=== PATIENT | female | born 1980 | race Caucasian/White ===

== ENCOUNTER 2021-08-21 09:21 | Outpatient (CLI) | payer OTHER, SELFPAY ==
[2021-08-21 18:49] LABS: Hematocrit 41.9 % (37.0-47.0); Hemoglobin 13.4 g/dL (12.0-15.0); Mean Corpuscular Volume 93.9 fl (80-100); Mean Platelet Volume 9.9 fl (7.4-10.4); Platelet Count Result 337 k/mm3 (150-375); Red Blood Count 4.46 M/mm3 (4.2-5.4); Red Cell Distribution Width 13.7 % (11.5-14.5); White Blood Count 2.9 K/mm3 (4.5-10.0)
[2021-08-21 18:58] LABS: Alanine Aminotransferase 18 U/L (4-35); Albumin Level 3.9 g/dL (3.5-5.1); Alkaline Phosphatase 62 U/L (38-126); Anion Gap 5 mmol/L (8-16); Aspartate Amino Transferase 25 U/L (14-36); Bilirubin,Total 0.3 mg/dL (0.2-1.3); Blood Urea Nitrogen 13 mg/dL (7-17); Calcium 9.4 mg/dL (8.4-10.2); Carbon Dioxide 29 mmol/L (22-30); Chloride 104 mmol/L (98-107); Cholesterol 166 mg/dL (0-200); Estimated Glomerular Filt Rate > 60; Glucose 97 mg/dL (65-110); HDL Direct 60 mg/dL; Potassium 4.1 mmol/L (3.4-5.0); Sodium 138 mmol/L (137-145); Triglycerides 59 mg/dL (<150)
[2021-08-21 19:09] LABS: LDL Cholesterol Direct 94 mg/dL
[2021-08-21 19:23] LABS: Total Cells Counted 100
[2021-08-21 19:28] LABS: Lymphocytes Absolute Manual 1.53 K/mm3 (1.1-4.5); Lymphocytes Percent Manual 53 % (18-44); Monocytes Absolute Manual 0.11 K/mm3 (0.1-0.90); Monocytes Percent Manual 4 % (3-9); Neutrophils Percent Manual 43 % (46-73)
[2021-08-21 19:31] LABS: Platelet Estimate Adequate (Adequate)
[2021-08-22 13:22] LABS: Hemoglobin A1C 5.2 % (<5.7)
[2021-08-25 05:49] LABS: Thyroid Peroxidase Antibodies 11 IU/mL (<9)
== END 2021-08-21 09:22 | disposition home or self-care (01) ==
PROVIDERS: PCP Family Medicine; Visit Provider Family Medicine
DX: Z00.00 Encounter for general adult medical examination without abnormal findings (principal); F41.9 Anxiety disorder, unspecified; R79.89 Other specified abnormal findings of blood chemistry
CPT/HCPCS: 36415; 80053; 80061; 83036; 84443; 85025; 86376

== ENCOUNTER 2022-05-17 15:04 | Outpatient (CLI) | payer OTHER, SELFPAY ==
[2022-05-17 19:14] LABS: Basophils Absolute Auto 0.1 K/mm3 (0.0-0.1); Eosinophils Absolute Auto 0.1 K/mm3 (0-0.3); Eosinophils Percent Auto 1.3 % (0-4.4); Hematocrit 41.2 % (37.0-47.0); Hemoglobin 13.2 g/dL (12.0-15.0); Lymphocytes Absolute Auto 2.19 K/mm3 (0.9-3.2); Lymphocytes Percent Auto 45.7 % (18.3-44.2); Mean Corpuscular Hemoglobin 29.4 pg (26-34); Mean Corpuscular Volume 91.8 fl (80-100); Mean Platelet Volume 10.1 fl (7.4-10.4); Monocytes Absolute Auto 0.7 K/mm3 (0.1-0.6); Neutrophils Absolute Auto 1.8 K/mm3 (1.3-6.7); Platelet Count Result 305 k/mm3 (150-375); Red Blood Count 4.49 M/mm3 (4.2-5.4); Red Cell Distribution Width 14.4 % (11.5-14.5); White Blood Count 4.8 K/mm3 (4.5-10.0)
== END 2022-05-17 15:05 | disposition home or self-care (01) ==
PROVIDERS: PCP Family Medicine; Visit Provider Family Medicine
DX: R79.89 Other specified abnormal findings of blood chemistry (principal); D72.819 Decreased white blood cell count, unspecified
CPT/HCPCS: 36415; 84443; 85025

== ENCOUNTER 2022-08-31 17:08 | Emergency (ER) | payer OTHER, SELFPAY ==
[2022-08-31 17:13] VITALS: BP 134/94; PULSE 76; RESP 16; TEMP 36.5; O2SAT 100
--- NOTE | 2022-08-31 17:35 | ED.EAR ---
HPI - Ear Problem General Chief complaint: Upper Respiratory Infection Stated complaint: sinus infection and ear clogged Time Seen by Provider: 08/31/22 17:26 Source: patient Mode of arrival: ambulatory Limitations: no limitations History of Present Illness HPI Narrative: Patient presents today complaining of 5 day history of left ear clogging, nasal congestion, cough. Cough is worse at night. Denies fever or shortness of breath. She has been taking Mucinex and an antihistamine with mild relief. Related Data Allergies Allergy/AdvReac Type Severity Reaction Status Date / Time Influenza Virus Vaccines Allergy Unknown Unknown Verified 08/31/22 17:26 No Known Allergies Allergy Verified 08/31/22 17:26 Review of Systems Review of Systems: CONSTITUTIONAL: Denies body aches, fever, chills, or sweats. EYES: Denies visual changes, redness, or discharge. ENT: Denies rhinorrhea, sore throat, or otalgia.+ nasal congestion, postnasal drip, left ear clogging CARDIOVASCULAR: Denies chest pain, palpitations, or edema. RESPIRATORY: Denies dyspnea.+ cough GASTROINTESTINAL: Denies abdominal pain, nausea, vomiting, or diarrhea. GENITOURINARY: Denies dysuria or hematuria. SKIN: Denies rash, itching, or wounds. MUSCULOSKELETAL: Denies back pain, joint pain, or myalgia. NEUROLOGIC: Denies headache, numbness, tingling, or weakness. PSYCH: Denies depression or anxiety. PMFSH Past Medical History Medical History Allergies Anxiety Family History Family History Mother Family history of diabetes mellitus in first degree relative Thyroid disorder Other Diabetes mellitus Social History Social History Smoking status: Never smoker Second hand tobacco smoke exposure: No Alcohol intake: current Substance use: never Comments At time of signature, I have reviewed and agree with nursing past medical, surgical, social and family history unless otherwise noted. Please see nursing chart for further information. There is no relevant family history pertinent to the presenting complaint Exam Narrative: GENERAL: Well-appearing, well-nourished, and in no acute distress. HEAD: Normocephalic, atraumatic. EYES: EOMI. No redness or drainage. Conjunctivae normal. ENT: Mucous membranes pink and moist. Nares congested. No rhinorrhea. Right TM normal. Left TM erythematous and bulging. Throat normal. Uvula midline. NECK: Normal AROM. Supple. No lymphadenopathy. CHEST: No respiratory distress. Clear to auscultation. Harsh cough noted. HEART: Regular rate and rhythm. No murmur appreciated. Normal peripheral pulses. EXTREMITIES: Normal range of motion. No edema. SKIN: Warm, dry, no rash. Capillary refill normal. Normal skin turgor. NEURO: No focal deficits. Alert and oriented x3. Gait steady. PSYCH: Normal affect. No signs of depression or anxiety. Course Course Level of Care: Express Care Visit Vital Signs Vital signs: Vital Signs Temperature 97.7 F 08/31/22 17:13 Pulse Rate 76 08/31/22 17:13 Respiratory Rate 16 08/31/22 17:13 Blood Pressure 134/94 H 08/31/22 17:13 Pulse Oximetry 100 08/31/22 17:13 Oxygen Delivery Room Air 08/31/22 17:13 Temperature 97.7 F 08/31/22 17:13 Pulse Rate 76 08/31/22 17:13 Respiratory Rate 16 08/31/22 17:13 Blood Pressure 134/94 H 08/31/22 17:13 Pulse Oximetry 100 08/31/22 17:13 Oxygen Delivery Room Air 08/31/22 17:13 Reviewed. Pt has been instructed to follow up with her PCP regarding her elevated blood pressure today. Medical Decision Making Differential Diagnosis Differential Diagnosis: Otitis media, otitis externa, ruptured TM, serous otitis, eustachian tube dysfunction, cerumen impaction, URI Vital Signs Vital Signs: Vital Signs Temperature 97.7 F 08/31/22 17:13
== END 2022-08-31 17:45 | disposition home or self-care (01) ==
PROVIDERS: Emergency Provider Nurse Practitioner; PCP Family Medicine
DX: H66.92 Otitis media, unspecified, left ear (principal); J06.9 Acute upper respiratory infection, unspecified
CPT/HCPCS: 99213; G0463

== ENCOUNTER 2024-09-23 08:10 | Emergency (ER) | payer OTHER, SELFPAY ==
[2024-09-23 08:17] VITALS: BP 143/86; PULSE 88; RESP 16; TEMP 36.6; O2SAT 100
--- NOTE | 2024-09-23 08:31 | ED.ABDPAIN ---
HPI - Abdominal Pain General Chief Complaint: Abdominal Pain Stated Complaint: Abdominal Pain Source: patient and RN notes reviewed Mode of arrival: ambulatory Limitations: no limitations History of Present Illness HPI narrative: 44 y/o female presented for c/o epigastric discomfort, onset 2 nights ago. Denies 'pain' but states it feels uncomfortable and like a pressure, feels like she has to belch, and increases with deep inspiration. Symptoms are constant but change in intensity. Has taken one Pepcid at onset, and took Pepto last night, and Tums. States it feels better now than it has but not gone. Also reports nausea. Denies palpitations, vomiting, diarrhea, constipation, fever. Denies change in meds or diet. Has increased intake of Alexi tea lately. Related Data Allergies Allergy/AdvReac Type Severity Reaction Status Date / Time Influenza Virus Vaccines Allergy Unknown Unknown Verified 09/23/24 08:30 Review of Systems Review of Systems: CONSTITUTIONAL: Denies body aches, fever, chills ENT: Denies rhinorrhea, congestion CARDIOVASCULAR: Denies chest pain, palpitations, or edema. RESPIRATORY: Denies cough or dyspnea. GASTROINTESTINAL: Endorses abdominal pain, nausea, Denies hematochezia, melena, vomiting, diarrhea. GENITOURINARY: Denies dysuria, hematuria, or CVA tenderness. SKIN: Denies rash MUSCULOSKELETAL: Denies back pain, joint pain, or myalgia. NEUROLOGIC: Denies numbness, tingling, or weakness. All systems reviewed & are unremarkable except as noted in HPI and below PMFSH Past Medical History Medical History Anxiety Allergies Family History Family History Mother Family history of diabetes mellitus in first degree relative Thyroid disorder Other Diabetes mellitus Social History Social History Smoking status: Never smoker Second hand tobacco smoke exposure: No Alcohol intake: current Substance use: never Lack of Transportation: No Lack of Food: Never True Current Housing: I Do Not Have Housing Concerned About Future Housing: No Difficulty Paying Gas/Electric Bills: No Difficulty Paying for Meds: No Currently Unemployed: No Education: Associate Degree Difficulty w/ Childcare or Family Care: No Living arrangements: with family Comments At time of signature, I have reviewed and agree with nursing past medical, surgical, social and family history unless otherwise noted. Please see nursing chart for further information. There is no relevant family history pertinent to the presenting complaint Exam Narrative: GENERAL: Well-appearing, and in no acute distress. ENT: Mucous membranes pink and moist. CHEST: No respiratory distress. Clear to auscultation. HEART: Regular rate and rhythm. No murmur appreciated. Normal peripheral pulses. ABDOMEN: abd soft, nondistended, normal active bowel sounds. Tender abdomen to epigastric area: No guarding, rebound tenderness, asymmetry EXTREMITIES: Normal range of motion. SKIN: Warm, dry, Capillary refill normal. Normal skin turgor. NEURO: No focal deficits. Alert and oriented x3. Course Course Emergency Course: Patient is aware of diagnosis, understands and agrees to treatment plan. Anticipatory guidance given. Patient agrees to follow-up as directed and is aware of reasons to seek care at the emergency department. Portions of this record may have been created with voice recognition software Level of Care: Express Care Visit Vital Signs Vital signs: Vital Signs Temperature 98 F 09/23/24 08:17 Pulse Rate 88 09/23/24 08:17 Respiratory Rate 16 09/23/24 08:17 Blood Pressure 143/86 H 09/23/24 08:17 Pulse Oximetry 100 09/23/24 08:17 Oxygen Delivery Room Air 09/23/24 08:17 Temperature 98 F 09/23/24 08:17 Pulse Rate 88 09/23/24 08:17 Respiratory Rate 16 09/23/24 08:17 Blood Pressure 143/86 H 09/23/24 08:17 Pulse Oximetry 100 09/23/24 08:17 Oxygen Delivery Room Air 09/23/24 08:17 MDM - Abdominal Pain MDM Narrative Medical decision making narrative: Discussed physical exam findings. EDACS score -2. Will treat for epigastric discomfort at this time. Advised supportive measures and signs/symptoms to go to the ER at length. Pt is appropriate for outpt treatment and f/u with pcp. Differential Diagnosis Differential diagnosis: Likely abdominal pain, acute appendicitis, calculus of kidney, constipation, diverticulitis, gastroenteritis, pancreatitis, small bowel obstruction and other (STEMI, AAA, PE, pneumothorax, cardiac tamponade, esophageal rupture, pneumonia, GERD, musculoskeletal pain, endocarditis, pericarditis, URI, bronchitis, anxiety) ECG Data EKG #1: Attestation: I personally reviewed and interpreted this ECG as follows: ( sinus rhythm 77, TN 168, QRS 90, QT/QTC 356/387) ECG completion date: 09/23/24 ECG completion time: 08:50 Prior ECG tracings: not available for review normal rate and sinus rhythm Discharge Plan Discharge Clinical Impression: Acute epigastric pain Patient Disposition: Home, Self-Care Condition: Stable Instructions: Antibiotic Form, GERD (Gastroesophageal Reflux Disease) (ED) Additional Instructions: Stay hydrated. Take small sips of fluid containing electrolytes frequently. Clear liquids (broth, jello, tea, sprite, pedialyte) [place] foods (bananas, rice, applesauce, toast, crackers) Avoid fatty, greasy, fried, acidic or spicy foods. Limit dairy until symptoms are improved. Avoid alcohol, chocolate, and carbonated beverages Do not lay down after eating. Take medication as prescribed 30 minutes before a meal You should go to the ER immediately for any worsening symptoms or concerns Follow up with primary care provider in 3 days. Patient Language: Armenian Prescriptions: New pantoprazole [Protonix] 40 mg tablet,delayed release (DR/EC) 40 mg PO QAM 14 Days Qty: 14 0RF Follow-up/Referrals: Justin Torres MD [Primary Care Provider] - Stand Alone Forms: Work/School Release IP Time of Disposition: 09:02
--- NOTE | 2024-09-23 08:41 | ECG_ITS ---
Test Date: 2024-09-23 08:50:21 Measurements Intervals [place] Rate: 77 P: 29 RI: 168 QRS: 52 QRSD: 90 T: 29 QT: 356 QTc: 403 Interpretive Statements SINUS RHYTHM LOW QRS VOLTAGE IN PRECORDIAL LEADS [QRS DEFLECTION < 1.0 mV IN CHEST LEADS] WARNING: DATA QUALITY MAY AFFECT INTERPRETATION No previous ECG available for comparison Electronically Signed On 09-23-2024 18:58:28 BUILDING MAINTENANCE CUSTODIAN by Nereyda Reinoso
== END 2024-09-23 09:05 | disposition home or self-care (01) ==
PROVIDERS: Emergency Provider Nurse Practitioner Family; PCP Family Medicine
DX: R10.13 Epigastric pain (principal)
CPT/HCPCS: 93005; 99213; G0463